=== PATIENT | male | born 1960 | race Caucasian/White ===

== ENCOUNTER → 2021-08-04 | Day surgery (SDC) | payer BC ==
[~2021-08-04] MED LIST: BUPIVACAINE MPF 0.25% 10 ML VIAL. ONE; LEVO88TA4 PO; LIDOCAINE 1% PF 30 ML VIAL. ONE; METO-247 PO; MULT-445 PO; OMEP20TA63 PO; vitamin c
[2021-08-04 14:57] VITALS: BP 150/98
== END | disposition home or self-care (01) ==
LOC: SURG 13:38
PROVIDERS: ATTEND Anesthesiology
DX: M47.816 Spondylosis without myelopathy or radiculopathy, lumbar region (principal); M54.59 Other low back pain; G89.29 Other chronic pain; I10 Essential (primary) hypertension; Z98.890 Other specified postprocedural states; Z79.899 Other long term (current) drug therapy; Z88.8 Allergy status to other drugs, medicaments and biological substances
CPT/HCPCS: 64493; 64494; A4209; A4657; A4930; J3490